=== PATIENT | male | born 1995 ===

== ENCOUNTER 2021-05-28 06:00 | Outpatient (RCR) | payer BC, MEDICAID, SELFPAY | END 2021-06-01 23:59 | disposition home or self-care (01) | LOC: MPT 06:00 | PROVIDERS: Visit Provider Nurse Practitioner Family | DX: M25.562 Pain in left knee (principal); M25.561 Pain in right knee | CPT/HCPCS: 97110; 97161; 97530 ==

== ENCOUNTER 2021-06-02 06:00 | Outpatient (RCR) | payer BC, MEDICAID, SELFPAY | END 2021-07-02 23:59 | disposition home or self-care (01) | LOC: MPT 06:00 | PROVIDERS: Visit Provider Nurse Practitioner Family | DX: G93.1 Anoxic brain damage, not elsewhere classified (principal); G82.50 Quadriplegia, unspecified; Z99.3 Dependence on wheelchair | CPT/HCPCS: 97110; 97530 ==

== ENCOUNTER 2021-07-03 06:00 | Outpatient (RCR) | payer BC, MEDICAID, SELFPAY | END 2021-08-02 23:59 | disposition home or self-care (01) | LOC: MPT 06:00 | PROVIDERS: Visit Provider Nurse Practitioner Family | DX: G89.29 Other chronic pain (principal); M25.569 Pain in unspecified knee | CPT/HCPCS: 97110; 97530 ==

== ENCOUNTER 2021-08-03 06:00 | Outpatient (RCR) | payer BC, MEDICAID, SELFPAY | END 2021-08-30 23:59 | disposition home or self-care (01) | LOC: MPT 06:00 | PROVIDERS: Visit Provider Nurse Practitioner Family | DX: G82.50 Quadriplegia, unspecified (principal) | CPT/HCPCS: 97110; 97530 ==

== ENCOUNTER 2021-08-31 06:00 | Outpatient (RCR) | payer MEDICAID, SELFPAY | END 2021-09-08 23:59 | disposition home or self-care (01) | LOC: MPT 06:00 | PROVIDERS: Visit Provider Nurse Practitioner Family | DX: G89.29 Other chronic pain (principal); M25.569 Pain in unspecified knee | CPT/HCPCS: 97110; 97530 ==

== ENCOUNTER 2022-04-11 06:00 | Outpatient (RCR) | payer MEDICARE, MEDICAID, SELFPAY | END 2022-05-02 23:59 | disposition home or self-care (01) | LOC: SOT 06:00 | PROVIDERS: Visit Provider Nurse Practitioner Family | DX: G93.1 Anoxic brain damage, not elsewhere classified (principal); G82.50 Quadriplegia, unspecified | CPT/HCPCS: 97167; 97530 ==

== ENCOUNTER 2023-02-09 06:00 | Outpatient (RCR) | payer MEDICARE, MEDICAID, SELFPAY | END 2023-03-02 23:59 | disposition home or self-care (01) | LOC: SPT 06:00 | PROVIDERS: Visit Provider Family Medicine | DX: G93.1 Anoxic brain damage, not elsewhere classified (principal); G81.90 Hemiplegia, unspecified affecting unspecified side; M62.838 Other muscle spasm; R53.1 Weakness | CPT/HCPCS: 97110; 97140; 97162; 97530 ==

== ENCOUNTER 2023-03-03 06:00 | Outpatient (RCR) | payer MEDICARE, MEDICAID, SELFPAY | END 2023-04-01 23:59 | disposition home or self-care (01) | LOC: SPT 06:00 | PROVIDERS: Visit Provider Family Medicine | DX: G93.1 Anoxic brain damage, not elsewhere classified (principal); G81.90 Hemiplegia, unspecified affecting unspecified side; M62.838 Other muscle spasm; R53.1 Weakness | CPT/HCPCS: 97110; 97140; 97530 ==

== ENCOUNTER 2023-04-02 06:00 | Outpatient (RCR) | payer MEDICARE, MEDICAID, SELFPAY | END 2023-05-02 23:59 | disposition home or self-care (01) | LOC: SPT 06:00 | PROVIDERS: Visit Provider Family Medicine | DX: G93.1 Anoxic brain damage, not elsewhere classified (principal); G81.90 Hemiplegia, unspecified affecting unspecified side; M62.838 Other muscle spasm; R53.1 Weakness | CPT/HCPCS: 97110; 97140; 97530 ==

== ENCOUNTER 2023-05-03 06:00 | Outpatient (RCR) | payer MEDICARE, MEDICAID, SELFPAY | END 2023-06-01 23:59 | disposition home or self-care (01) | LOC: SPT 06:00 | PROVIDERS: Visit Provider Family Medicine | DX: G93.1 Anoxic brain damage, not elsewhere classified (principal); G81.90 Hemiplegia, unspecified affecting unspecified side; M62.838 Other muscle spasm; R53.1 Weakness | CPT/HCPCS: 97110; 97140; 97530 ==

== ENCOUNTER 2023-06-02 06:00 | Outpatient (RCR) | payer MEDICARE, MEDICAID, SELFPAY | END 2023-07-02 23:59 | disposition home or self-care (01) | LOC: SPT 06:00 | PROVIDERS: Visit Provider Family Medicine | DX: G93.1 Anoxic brain damage, not elsewhere classified (principal); G81.90 Hemiplegia, unspecified affecting unspecified side; M62.838 Other muscle spasm; R53.1 Weakness | CPT/HCPCS: 97110; 97140; 97530 ==

== ENCOUNTER 2023-07-03 06:00 | Outpatient (RCR) | payer MEDICARE, MEDICAID, SELFPAY | END 2023-08-02 23:59 | disposition home or self-care (01) | LOC: SPT 06:00 | PROVIDERS: Visit Provider Family Medicine | DX: G93.1 Anoxic brain damage, not elsewhere classified (principal); G81.90 Hemiplegia, unspecified affecting unspecified side; M62.838 Other muscle spasm; R53.1 Weakness | CPT/HCPCS: 97110; 97140; 97530 ==

== ENCOUNTER 2023-08-03 06:00 | Outpatient (RCR) | payer MEDICARE, MEDICAID, SELFPAY | END 2023-08-31 23:59 | disposition home or self-care (01) | LOC: SPT 06:00 | PROVIDERS: Visit Provider Family Medicine | DX: G93.1 Anoxic brain damage, not elsewhere classified (principal); G81.90 Hemiplegia, unspecified affecting unspecified side; M62.838 Other muscle spasm; R53.1 Weakness | CPT/HCPCS: 97110; 97140; 97530 ==

== ENCOUNTER 2023-09-01 06:00 | Outpatient (RCR) | payer MEDICARE, MEDICAID, SELFPAY | END 2023-10-01 23:59 | disposition home or self-care (01) | LOC: SPT 06:00 | PROVIDERS: Visit Provider Family Medicine | DX: G93.1 Anoxic brain damage, not elsewhere classified (principal); G81.90 Hemiplegia, unspecified affecting unspecified side; M62.838 Other muscle spasm; R53.1 Weakness | CPT/HCPCS: 97110; 97140; 97530 ==

== ENCOUNTER 2023-10-02 06:00 | Outpatient (RCR) | payer MEDICARE, MEDICAID, SELFPAY | END 2023-10-23 23:59 | disposition home or self-care (01) | LOC: SPT 06:00 | PROVIDERS: Visit Provider Family Medicine | DX: G93.1 Anoxic brain damage, not elsewhere classified (principal); G81.90 Hemiplegia, unspecified affecting unspecified side; M62.838 Other muscle spasm; R53.1 Weakness | CPT/HCPCS: 97110; 97140; 97530 ==